=== PATIENT | female | born 1975 | race Caucasian/White ===

== ENCOUNTER 2020-01-04 14:18 | Emergency (ER) | payer BC, OTHER ==
[2020-01-04] MEDS ORDERED: Ketorolac 60 MG/2 ML SDV IM ONE (14:37)
--- NOTE | 2020-01-04 14:42 | EDM.PDOC ---
ED HPI GENERAL MEDICAL PROBLEM - General Chief Complaint: General Stated Complaint: RIB PAIN Time Seen by Provider: 01/04/20 14:25 Source of Information: Reports: Patient History Limitations: Reports: No Limitations - History of Present Illness INITIAL COMMENTS - FREE TEXT/NARRATIVE: Patient presents to ER with complaints of right upper chest discomfort. States noted mild swelling in this area today. Denies any injury, no lifting or straining. Has not been ill, no cough. States has "had ribs out before but never this high up". Pain was waxing and waning over the last week but now more constant in the last 24 hours. Admits to pain with lifting or moving arm, radiates now back to right shoulder as well. Cannot find a position of comfort to sleep or rest. Has had lots of neck issues over the last year, has seen the chiropractor many times but never had associated discomfort like this. denies fever. No redness or warmth noted to area. Onset: Gradual Duration: Day(s): Location: Reports: Chest Quality: Reports: Sharp, Throbbing Severity: Severe Improves with: Reports: None Worsens with: Reports: Movement Associated Symptoms: Denies: Chest Pain, Cough, Fever/Chills, Loss of Appetite, Nausea/Vomiting, Shortness of Breath Chest Pain Score (Numeric/FACES): 10 - Related Data Allergies Allergy/AdvReac Type Severity Reaction Status Date / Time sulfamethoxazole Allergy Cannot Verified 01/04/20 14:28 [From ] Remember trimethoprim [From ] Allergy Cannot Verified 01/04/20 14:28 Remember Home Meds: Home Meds . [No Known Home Meds] 01/04/20 [History] Past Medical History Musculoskeletal History: Reports: Neck Pain, Chronic Social & Family History - Tobacco Use Smoking Status *Q: Never Smoker - Recreational Drug Use Recreational Drug Use: No ED ROS GENERAL - Review of Systems Review Of Systems: See Below Constitutional: Denies: Fever, Chills, Malaise, Weakness, Fatigue, Decreased Appetite HEENT: Denies: Ear Pain, Rhinitis, Sinus Problem, Throat Pain, Vertigo Respiratory: Reports: Pleuritic Chest Pain. Denies: Shortness of Breath, Cough Cardiovascular: Denies: Chest Pain, Edema, Lightheadedness Endocrine: Denies: Fatigue GI/Abdominal: Denies: Abdominal Pain, Nausea, Vomiting : Reports: No Symptoms Musculoskeletal: Reports: Shoulder Pain, Other (chest wall pain) Skin: Reports: Other (swelling to right chest wall) Neurological: Reports: No Symptoms ED EXAM, GENERAL - Physical Exam Exam: See Below Exam Limited By: No Limitations General Appearance: Alert, WD/WN, Other (tearful) Ears: Normal External Exam, Normal TMs Nose: Normal Inspection, Normal Mucosa, No Blood Throat/Mouth: Normal Inspection, Normal Oropharynx Head: Normocephalic Neck: Normal Inspection, Supple, Non-Tender Respiratory/Chest: No Respiratory Distress, Lungs Clear, Normal Breath Sounds, Other (has mild swelling to right chest wall in comparison to left. Very tender to left upper chest wall. No redness or warmth) Cardiovascular: Regular Rate, Rhythm GI/Abdominal: Normal Bowel Sounds, Soft, Non-Tender Extremities: Limited Range of Motion (right arm due to pain in chest and posterior trapezius area) Neurological: Alert, Oriented Psychiatric: Tearful Skin Exam: Warm, Dry Course - Vital Signs Last Recorded V/S: Last Vital Signs Temp 95.9 F L 01/04/20 14:29 Pulse 108 H 01/04/20 14:29 Resp 22 H 01/04/20 14:29 BP 150/101 H 01/04/20 14:29 Pulse Ox 99 01/04/20 14:29 - Orders/Labs/Meds Meds: Medications Discontinued Medications Generic Name Dose Route Start Last Admin Trade Name Freq PRN Reason Stop Dose Admin Ketorolac Tromethamine 60 mg 01/04/20 14:37 01/04/20 14:45 Toradol IM 01/04/20 14:38 60 mg ONETIME ONE Administration Orphenadrine Citrate 60 mg 01/04/20 14:37 01/04/20 14:55 Norflex IM 01/04/20 14:38 60 mg ONETIME ONE Administration Orphenadrine Citrate Confirm 01/04/20 14:57 01/04/20 14:57 Norflex Administered 01/04/20 14:58 Not Given Dose 60 mg .ROUTE .STK-MED ONE - Re-Assessments/Exams Free Text/Narrative Re-Assessment/Exam: 01/04/20 15:17 Chest xray negative. Is getting relief some relief of the discomfort. States "easier to breathe now". Departure - Departure Time of Disposition: 15:18 Disposition: Home, Self-Care 01 Condition: Good Clinical Impression: Acute chest wall pain - Discharge Information *PRESCRIPTION DRUG MONITORING PROGRAM REVIEWED*: No *COPY OF PRESCRIPTION DRUG MONITORING REPORT IN PATIENT TARIK: No Instructions: Chest Wall Pain, [id number] Forms: ED Department Discharge Additional Instructions: 1. Rest 2. Ice or heat for comfort 3. Flexeril 10 mg every 6-8 hours as needed for muscle relaxation 4. Toradol 10 mg every 6 hours for pain/swelling 5. Follow up with primary care provider if pain persists or see chiropractor Sepsis Event Note - Evaluation Sepsis Screening Result: No Definite Risk - Focused Exam Vital Signs: Vital Signs Temp Pulse Resp BP Pulse Ox 01/04/20 14:29 95.9 F L 108 H 22 H 150/101 H 99 Date Exam was Performed: 01/04/20 Time Exam was Performed: 15:17
--- NOTE | 2020-01-04 15:17 | CR ---
[id number] RAD/RAD Ribs Right W PA Chest EXAM: RAD Ribs Right W PA Chest INDICATION: CHEST SWELLING/PAIN. COMPARISON: None. DISCUSSION: Cardiomediastinal silhouette is normal in size and contour. No infiltrate, effusion, pneumothorax, or edema. IMPRESSION: No acute cardiopulmonary abnormality. Bal Lopez DO 01/04/20 1516 Thank you for allowing us to participate in the care of your patient.
[2020-01-04] MEDS ORDERED: Take Home: Cyclobenzaprine 10 MG Tab, 4 Tab Pack PO ONE (15:19)
[2020-01-04] MEDS ORDERED: Take Home: Ketorolac 10 MG Tab, 4 Tab Pack PO ONE (15:19)
== END 2020-01-04 15:30 | disposition home or self-care (01) ==
LOC: VM.ED 14:18
DX: R07.89 Other chest pain (principal); Z88.2 Allergy status to sulfonamides
CPT/HCPCS: 71101; 96372; 99283; A9270; J1885; J2360

== ENCOUNTER 2020-05-09 12:49 | Emergency (ER) | payer MEDICAID, OTHER ==
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
--- NOTE | 2020-05-09 13:56 | CR ---
[id number] RAD/RAD Elbow Right 3V Min EXAM: RAD Elbow Right 3V Min CLINICAL DATA: TRAUMA COMPARISON: NO PREVIOUS SIMILAR EXAM IS AVAILABLE. FINDINGS: No fracture or dislocation is seen. There is no radiopaque foreign body in the soft tissues. There is no air in the soft tissues. There is no cortical thickening or periosteal reaction either. IMPRESSION: NEGATIVE PLAIN FILM EXAM. Carlos Morales MD 05/09/20 [id number] Thank you for allowing us to participate in the care of your patient.
== END 2020-05-09 13:59 | disposition home or self-care (01) ==
LOC: VM.ED 12:49
DX: S59.901A Unspecified injury of right elbow, initial encounter (principal); Z88.2 Allergy status to sulfonamides; X50.1XXA Overexertion from prolonged static or awkward postures, initial encounter
CPT/HCPCS: 73080-RT; 99283

== ENCOUNTER 2020-08-14 16:35 | Emergency (ER) | payer MEDICAID ==
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
[2020-08-14] MEDS ORDERED: Diphtheria,Pertussis(Acell),Tetanus Vaccine 0.5 ML Syringe IM ONE (17:06)
--- NOTE | 2020-08-14 17:32 | CR ---
[id number] RAD/RAD Wrist Right 3V Min Exam: RAD Wrist Right 3V Min Indication:FALL, RIGHT WRIST INJURY. Comparison: No prior imaging for comparison. Discussion/Impression: No radiographically evident fracture. Bones in normal alignment. Joint spaces are well-preserved. No AVN or erosive changes. Domo Tim MD 08/14/20 1738 Thank you for allowing us to participate in the care of your patient.
[2020-08-14] MEDS ORDERED: Diphtheria,Pertussis(Acell),Tetanus Vaccine 0.5 ML Syringe ONE (17:53)
== END 2020-08-14 18:15 | disposition home or self-care (01) ==
LOC: VM.ED 16:35
DX: S63.501A Unspecified sprain of right wrist, initial encounter (principal); S80.812A Abrasion, left lower leg, initial encounter; Z23 Encounter for immunization; Z88.2 Allergy status to sulfonamides; Z88.1 Allergy status to other antibiotic agents; W17.89XA Other fall from one level to another, initial encounter
CPT/HCPCS: 73110-RT; 90471; 90715; 99283

== ENCOUNTER 2022-02-04 21:18 | Emergency (ER) | payer MEDICAID ==
[2022-02-04] MEDS ORDERED: Take Home: Acetaminophen/HYDROcodone 325-5 MG, 5 Tab Pack PO ONE (21:58)
== END 2022-02-04 22:10 | disposition home or self-care (01) ==
LOC: VM.ED 21:18
DX: S52.502A Unspecified fracture of the lower end of left radius, initial encounter for closed fracture (principal); Z79.899 Other long term (current) drug therapy; Z88.2 Allergy status to sulfonamides; W01.0XXA Fall on same level from slipping, tripping and stumbling without subsequent striking against object, initial encounter
CPT/HCPCS: 73070; 73110; 99283; A9270

== ENCOUNTER 2023-03-02 18:19 | Emergency (ER) | payer MEDICAID ==
[2023-03-02] MEDS ORDERED: Acetaminophen 325 MG Tab PO ONE (18:37)
[2023-03-02] MEDS ORDERED: Ibuprofen 200 MG Tab PO ONE (18:37)
[2023-03-02] MEDS ORDERED: Ketorolac 30 MG/ML SDV IM ONE (19:46)
[2023-03-02] MEDS ORDERED: Promethazine 25 MG/ML SDV IM ONE (19:47)
== END 2023-03-02 20:18 | disposition home or self-care (01) ==
LOC: VM.ED 18:19
DX: R51.9 Headache, unspecified (principal); Z91.040 Latex allergy status; Z88.2 Allergy status to sulfonamides
CPT/HCPCS: 96372; 99283; A9270-GY; J1885; J2550